=== PATIENT | male | born 1970 | race Caucasian/White ===

== ENCOUNTER 2023-09-07 19:30 | Emergency (ER) | payer OTHER, SELFPAY ==
[2023-09-07 19:35] VITALS: BP 162/103
[2023-09-07 19:51] LABS: % Basophils 0.6 % (0-2); % Eosinophils 1.2 % (0-6); % Immature Granulocytes 0.1 % (0-0.5); % Lymphocytes 36.7 % (20.5-51.1); % Monocytes 6.7 % (1.7-9.3); % Neutrophils 54.7 % (42.2-75.2); Absolute Basophils 0.1 10^3/uL (0-0.2); Absolute Eosinophils 0.1 10^3/uL (0-0.7); Absolute Lymphocytes 3.1 10^3/uL (1.2-3.4); Absolute Monocytes 0.6 10^3/uL (0.1-0.6); Absolute Neutrophils 4.6 10^3/uL (1.4-6.5); Hematocrit 41.8 % (39.0-52.0); Hemoglobin 14.8 g/dL (13.0-18.0); Mean Corp Hgb Conc. 35.4 g/dL (33.0-37.0); Mean Corpuscular Hgb 29.1 pg (27.0-31.0); Mean Corpuscular Volume 82.3 fL (80.0-94.0); Mean Platelet Volume 10.9 fL (7.4-10.4); Nucleated Red Blood Cells % 0 % (-); Platelet Count 233 10^3/uL (130-400); Red Blood Cell Count 5.08 10^6/uL (4.70-6.10); Red Cell Dist. Width 12.7 % (11.5-14.5); White Blood Cell Count 8.5 10^3/uL (4.8-10.8)
[2023-09-07 20:17] LABS: ALT (SGPT) 68 U/L (0-50); AST (SGOT) 40 U/L (17-59); Albumin 4.8 g/dl (3.5-5.0); Alkaline Phosphatase 56 U/L (38-126); Blood Urea Nitrogen 23 mg/dl (9-20); Calcium 9.9 mg/dl (8.4-10.2); Carbon Dioxide 26 mmol/L (22-30); Chloride 104 mmol/L (98-107); Glucose 101 mg/dl (70-99); Potassium 4.5 mmol/L (3.5-5.1); Sodium 138 mmol/L (135-145); Total Bilirubin 0.5 mg/dl (0.2-1.3); Total Protein 7.7 g/dl (6.3-8.2); eGFR > 60.00
[2023-09-07 20:20] LABS: Troponin I < 0.012 ng/ml
[2023-09-07 21:00] VITALS: BP 142/96
--- NOTE | 2023-09-07 21:55 | ED.GENMED ---
History of Present Illness
General
Chief Complaint: Chest Pain
Source: patient
Exam Limitations: none
Time Seen by Provider: 09/07/23 20:44
History of Present Illness
History of Present Illness:
This is a 53 year old male that comes in with multiple complaints. States that on he went to his PCP as over the past year he has had this inflammatory issue. States that he told him there is something wrong with his right lung. States that
he was given Steroids and antibiotic that if he didn't feel any better he could start them. States that he started the Steroids on Wednesday and the inflammation got better. States that today he did not feel well and was SOB slightly. States that the
SOB has been going on in the past month. States that he also has right sided abd pain that has been the liver for the past 6 months and it a throbbing pain. State that he has been flushed and sweating more. Denies any fever, chest pain, nausea,
vomiting, diarrhea, headache, dizziness, urinary burning.
Past History
Past History
ED Past Medical History: Asthma, GERD and Other (Palpitations, Fatty liver, Hep A)
ED Past Surgical History: Orthopedic (Left knee surgery, ) and Urological (Vasectomy)
Social History
Tobacco: Non-smoker
Alcohol: None
Personal:
Living: with family
Employment: Employed
Review of Systems
Review of Systems
All Other Systems: ROS reviewed and negative except as documented in HPI and ROS
Constitutional: Reports night sweats; Denies fever or chills
EENT: Reports no symptoms
Respiratory: Reports trouble breathing and other (Right lower lung discomfort); Denies cough
Cardiac: Denies chest pain
ABD/GI: Reports abdominal pain (Right sided abd pain); Denies nausea, vomiting or diarrhea
: Reports no symptoms; Denies dysuria, frequency or urgency
Musculoskeletal: Reports no symptoms
Skin: Reports no symptoms
Neurological: Reports no symptoms; Denies dizzy or headache
Psychiatric: Reports no symptoms
Phy Exam
General Physical Exam
General Presentation: well appearing and no apparent distress
General age: appears stated age
General Skin: warm and dry
General Habitus: normal
General Mental: alert
General Hydration: appears well hydrated
ENT Exam
ENT Exam: TM's normal, pharynx normal and neck supple
Eye Exam
Eye Exam: EOMI
Cardiovascular Exam
Cardiovascular Exam: regular rate/rhythm, no edema, no murmur and normal peripheral pulses
Pulmonary Exam
Pulmonary Exam: lungs clear, no respiratory distress, no rales, chest non tender, no crackles, no rhonchi, no wheezing and no cough
Gastrointestinal Exam
Gastrointestinal Exam: normal bowel sounds, non tender, soft, no organomegaly, no pulsatile mass and non distended
Musculoskeletal Exam
Musculoskeletal Exam: full ROM and no edema
Skin Exam
Skin Exam: normal color, warm/dry, no rash and no petechia
Psychiatric Exam
Psychiatric Exam: normal mood/affect
Scores
Heart Score for Chest Pain Patients
STEMI patient?: No
History: Slightly or Non-Suspicious
ECG: Normal
Age: >45 - <65 years
Risk Factors: No Risk Factors
Troponin: </= Normal Limit
Heart Score for Chest Pain Patients: 1
Heart Score Risk: 2.5% MACE over next 6 weeks
Course
Orders/Labs/Results
Orders:
Orders
09/07/23 19:34
Electrocardiogram (*1) Urgent
Reason for Study: Chest Pain
Cardiac Monitoring- Treatment ONCE
EKG- Treatment ONCE
IV Insert/Care/Rem.- Treatment PRN
O2 Therapy [RESP] Urgent
Titrate/Wean O2 to maintain O2 sat greater than (%): 90
Special Instructions: Maintain sats >/=90%
Pulse Ox/spot Check [RESP] Urgent
Quantity: 1
Special Instructions: ON ROOM AIR
09/07/23 19:42
CXR2 [CR Chest - 2 Views ] Urgent
Comment:
Reason For Exam: chest pain
09/07/23 19:43
Complete Blood Count/With Diff Urgent
Comprehensive Metabolic Panel Urgent
Troponin I Urgent
09/07/23 21:54
CT Abd/pelvis W Iv Cont Urgent
Comment:
Reason For Exam: rIGHT SIDED ABD PAIN
0.9% Sodium Chloride 1000 ml [Nss] 1,000 ml IV BOLUS
Abnormal Lab Results
09/07/23
19:43
MPV 10.9 H fL
(7.4-10.4)
BUN 23 H mg/dl
(9-20)
Glucose 101 H mg/dl
(70-99)
ALT 68 H U/L
(0-50)
09/07/23 19:43
09/07/23 19:43
Dehydration. Glucose nonfasting. ALT elevated. Troponin <0.012
Vital Signs
Initial and Last Documented VS:
Initial Vital Signs
Temp Pulse Resp BP Pulse Ox
98.5 F 76 18 162/103 99
09/07/23 19:35 09/07/23 19:35 09/07/23 19:35 09/07/23 19:35 09/07/23 19:35
Last Documented Vital Signs
Temp Pulse Resp BP Pulse Ox
98.5 F 66 17 142/96 97
09/07/23 19:35 09/07/23 21:30 09/07/23 20:45 09/07/23 21:00 09/07/23 22:52
MDM/Problems Addressed
Differential Diagnosis Includes:
Right sided chest pain,
MDM/Problems Addressed:
This is a 53 year old male that comes in with multiple complaints. States that he has had right sided abd throbbing pain and that he feels like there is something in the right lung.
Will get labs, CT abd and chest x-ray.
Back into see patient. Explained that his blood work shows dehydrated and his ALT is mildly elevated which goes along with a fatty liver. Troponin is normal and his ECG is unchanged from his prior ECG. CT of the abd shows a left inguinal hernia but
nothing else acute. Chest x-ray is negative for acute disease. Explained that his right side abd pain, may be coming form his back as the nerves wrap around to the abd. With being on the steroid this has decreased any inflammation and will has
decreased this right sided pain. Patient to follow up with the family doctor. Return with any concerns.
Chronic conditions affecting care:
NA
Acute Exacerbation and/or Progression of Chronic Illness:
NA
*Radiology
Radiology exam reviewed: preliminary read by ED provider (Chest- Negative for active disease. ) and radiology read reviewed (CT-The appendix is well-visualized and appears normal. No evidence for bowel obstruction or free intraperitoneal air. Fatty
infiltration of the liver. Mild vascular calcification with no aortic aneurysm. Gauaf-kcl-ketrsengoa left inguinal hernia. . )
*Pulse Oximetry
Patient hypoxic: no
*EKG
Interpreted by ED Provider?: Yes
Heart Rate: 63
Rate: normal
Rhythm: sinus
[place]: left axis deviation
Interval: normal interval
QRS Pattern: normal QRS
Ischemia: no ischemia
*Critical Care Note
Total Time (30-74mins, 75-104mins- exclusive of procedures): Not Applicable
ED Attending Note
-
Portions of this chart may have been created with voice recognition software.� Occasional wrong word or��sound alike� substitutions may have occurred due to the inherent limitations of voice recognition software.
Discharge Plan
Departure
Patient Disposition: Home (Routine Discharge)
Date of Disposition: 09/07/23
Time of Disposition: 23:37
Patient with high blood pressure during this ER visit?: Yes
Condition: Good
Covid-19: Not Applicable
Discharge Problem:
Right sided abdominal pain
Instructions: Abdominal pain in adults - Discharge instructions, BLOOD PRESSURE
Referrals:
Leonardo Hollis, [Family Provider] - Call in 1-3 days for appt
Activity Restrictions/Additional Instructions:
As discussed, your blood work shows Dehydration. Your CT scan shows that you have a left inguinal hernia and there is degenerative changes in the spine. This is most likely causing your Right sided abd pain. Your chest x-ray is normal. Please follow
up with the family doctor for further evaluation. Please increase your water intake to 8-8oz glasses daily. IF YOU HAVE ANY OTHER CONCERNS PLEASE RETURN TO THE EMERGENCY ROOM.
Interventions
Interventions:
*Risk Screen - Suicide Last Done: 09/07/23 21:09
*General Assessment Last Done: 09/07/23 19:35
*Neglect/Abuse Screening Last Done: 09/07/23 19:35
ED- Fall Risk Assessment Last Done: 09/07/23 21:09
ED- Cardiac Assessment Last Done: 09/07/23 21:09
Discharge Date and Time
Print Language: FAROESE
[2023-09-07] MEDS: NSS 1000 IV (22:14)
== END 2023-09-07 23:59 | disposition home or self-care (01) ==
LOC: EMR 19:30
PROVIDERS: Emergency Medicine; EMERGENCY PHYSICIAN Emergency Medicine; FAMILY PHYSICIAN Family Medicine
DX: R07.89 Other chest pain (principal); J45.909 Unspecified asthma, uncomplicated; K21.9 Gastro-esophageal reflux disease without esophagitis; R00.2 Palpitations; K76.0 Fatty (change of) liver, not elsewhere classified
CPT/HCPCS: 99284; 96360; 71046; 74177; 80053; 84484; 85025; 93005; Q9967

== ENCOUNTER 2024-02-27 08:45 | Emergency (ER) | payer OTHER, SELFPAY ==
[2024-02-27 08:48] VITALS: BP 160/108
--- NOTE | 2024-02-27 09:45 | ED.GENMED ---
History of Present Illness
General
Chief Complaint: Abdominal Symptoms
Source: patient
Time Seen by Provider: 02/27/24 09:04
History of Present Illness
History of Present Illness:
53-year-old male with past medical history of GERD and SANCHEZ presenting to the emergency department for evaluation of right upper quadrant pain that has been ongoing for the better part of a few months, no specific etiology found however has been
having waxing and waning elevated liver function levels, follows with a global ceo and had been doing quite well up until the last few months when his ALT started to increase again without any specific etiologies. Patient notes that symptoms seem
to start when he was exercising he would notice his entire body would get very flushed and during workup was noted to have elevated liver function test so his symptoms were thought to be related to this. Over the coming months patient had been
worked up without any specific etiology found other than a somewhat fatty liver. He notes around [place] time he woke up to a diffuse body rash and was started on prednisone which he took but was experiencing some side effects of discontinued
this medication. Patient states last night he started to get more pain within the right upper quadrant and felt a hot/flushed sensation that was worse than typical which is what prompted him to come to the ER today. No other GI related symptoms
presently. Social history noncontributory.
Past History
Past History
ED Past Medical History: Asthma, GERD and Other (Palpitations, Fatty liver, Hep A)
ED Past Surgical History: Orthopedic (Left knee surgery, ) and Urological (Vasectomy)
Social History
Tobacco: Non-smoker
Alcohol: None
Drug: None
Personal:
Living: with family
Employment: Employed
Review of Systems
Review of Systems
All Other Systems: ROS reviewed and negative except as documented in HPI and ROS
Phy Exam
Physical Exam
Physical Exam:
GENERAL: Alert , in no apparent distress
EYE: clear conjunctiva b/l
HEAD: NCAT
ENT: o/p clr, mmm.
CARDIAC: Regular rate and rhythm
LUNGS: Clear breath sounds bilaterally, no acute respiratory distress, no wheezes/rales/rhonchi
ABDOMEN: Soft, without focal tenderness, no r/g, no cvat
NEUROLOGICAL: Alert and oriented
SKIN: Warm and dry, skin intact.
MUSCULOSKELETAL: No edema, well perfused.
PSYCH: Normal and appropriate interaction.
Scores
Heart Failure Risk
Heart Failure Risk Score: Not Applicable
Heart Score for Chest Pain Patients
STEMI patient?: Not applicable
Withdrawal Assessment of Alcohol
Withdrawal Assessment Completed?: Not applicable
Course
Orders/Labs/Results
Orders:
Orders
02/27/24 09:22
US Abdomen Complete/Upper Urgent
Comment:
Reason For Exam: upper abd pain
02/27/24 09:38
Complete Blood Count/With Diff Urgent
Comprehensive Metabolic Panel Urgent
Lipase Urgent
Urinalysis Reflex To Culture Urgent
Date Specimen was Collected: 02/27/24
Time Specimen was Collected: 09:35
Urine Microscopic Reflex Cult Urgent
02/27/24 11:07
Electrocardiogram (*1) Urgent
Reason for Study: Abdominal Pain
EKG- Treatment ONCE
Abnormal Lab Results
02/27/24
09:38
MPV 11.6 H fL
(7.4-10.4)
Glucose 103 H mg/dl
(70-99)
ALT 77 H U/L
(0-50)
Lipase 301 H U/L
(23-300)
Urine Ketones Trace A
(Negative)
Leukocyte Esterase Rfl Trace A
(Negative)
Urine Bacteria (Reflex) Few A
(Negative)
02/27/24 09:38
02/27/24 09:38
Vital Signs
Initial and Last Documented VS:
Initial Vital Signs
Temp Pulse Resp BP Pulse Ox
98.3 F 84 18 160/108 100
02/27/24 08:48 02/27/24 08:48 02/27/24 08:48 02/27/24 08:48 02/27/24 08:48
Last Documented Vital Signs
Temp Pulse Resp BP Pulse Ox
98.3 F 84 18 143/89 96
02/27/24 08:48 02/27/24 08:48 02/27/24 08:48 02/27/24 12:00 02/27/24 12:30
MDM/Problems Addressed
Differential Diagnosis Includes:
cholelithiasis/cholecytisis considered however patient did have a CAT scan done here in August which did not show any abnormalities of the gallbladder making this diagnosis a little bit less likely, GERD/gastritis, pancreatitis, PE considered given
location of symptoms however patient without any other symptoms such as coughing, shortness of breath or chest pain making this a likely diagnosis
MDM/Problems Addressed:
53-year-old male presenting to the emergency department for evaluation of what sounds to be acute on chronic right upper quadrant abdominal discomfort. This is seemingly an ongoing issue and has been working with global ceo for evaluation of
mildly elevated liver function tests. Recently was on steroids but has been off for at least 2 full weeks. No fevers or infectious symptoms. Abdominal exam reassuring. Will repeat labs and ultrasound as patient states his primary care was going
to order him an ultrasound of the liver/gallbladder. Reassessment following with anticipation of need for continued outpatient workup.
*Radiology
Radiology exam reviewed: radiology read reviewed
*Pulse Oximetry
Patient hypoxic: no
*Critical Care Note
Total Time (30-74mins, 75-104mins- exclusive of procedures): Not Applicable
Data Reviewed
Review of Other/Old Records Reveals: Labs and Records
Patient Management
Escalation/DeEscalation of care consider admission/obs:
Ultrasound shows fatty liver. No gallstones or bile duct dilatation. Incidental finding on CT noted, patient provided with printout copy of the report and can follow-up on a nonemergent basis for CT scan. I did advise patient to follow-up with
primary care provider would likely need repeat labs within a few weeks to trend ALT and lipase. He is aware of return precautions to the ER. Stable for discharge home.
ED Attending Note
-
Portions of this chart may have been created with voice recognition software.� Occasional wrong word or��sound alike� substitutions may have occurred due to the inherent limitations of voice recognition software.
Discharge Plan
Departure
Patient Disposition: Home (Routine Discharge)
Date of Disposition: 02/27/24
Time of Disposition: 12:45
Patient with high blood pressure during this ER visit?: Yes
Discharge Problem:
Abdominal pain
Instructions: Abdominal Pain
Referrals:
Leonardo Hollis DO [Family Provider] -
Interventions
Interventions:
*Risk Screen - Suicide Last Done: 02/27/24 08:48
*General Assessment Last Done: 02/27/24 08:48
*Neglect/Abuse Screening Last Done: 02/27/24 08:48
ED- Fall Risk Assessment Last Done: 02/27/24 11:45
*ED COVID-19 Vaccine History Last Done: 02/27/24 11:45
KO-Ywfntj-Sfltcngcra Assessment Last Done: 02/27/24 10:55
Discharge Date and Time
Print Language: GEORGIAN
[2024-02-27 09:52] LABS: % Basophils 0.5 % (0-2); % Eosinophils 2.5 % (0-6); % Immature Granulocytes 0.4 % (0-0.5); % Lymphocytes 43.2 % (20.5-51.1); % Monocytes 6.6 % (1.7-9.3); % Neutrophils 46.8 % (42.2-75.2); Absolute Eosinophils 0.1 10^3/uL (0-0.7); Absolute Lymphocytes 2.4 10^3/uL (1.2-3.4); Absolute Monocytes 0.4 10^3/uL (0.1-0.6); Absolute Neutrophils 2.6 10^3/uL (1.4-6.5); Hematocrit 45.4 % (39.0-52.0); Hemoglobin 15.7 g/dL (13.0-18.0); Mean Corp Hgb Conc. 34.6 g/dL (33.0-37.0); Mean Corpuscular Volume 83.8 fL (80.0-94.0); Mean Platelet Volume 11.6 fL (7.4-10.4); Nucleated Red Blood Cells % 0 % (-); Platelet Count 223 10^3/uL (130-400); Red Blood Cell Count 5.42 10^6/uL (4.70-6.10); Red Cell Dist. Width 12.9 % (11.5-14.5); White Blood Cell Count 5.6 10^3/uL (4.8-10.8)
[2024-02-27 10:00] LABS: Urine Albumin Trace (Neg - Trace); Urine Bilirubin Negative (Negative); Urine Character Clear (Clear); Urine Color Yellow; Urine Glucose Negative (Negative); Urine Ketone Trace (Negative); Urine Leukocyte Trace (Negative); Urine Nitrite Negative (Negative); Urine Occult Blood Negative (Negative); Urine Specific Gravity 1.025 (<1.030); Urine Urobilinogen Negative (Neg - 1+)
[2024-02-27 10:07] LABS: ALT (SGPT) 77 U/L (0-50); AST (SGOT) 41 U/L (17-59); Alkaline Phosphatase 57 U/L (38-126); Blood Urea Nitrogen 12 mg/dl (9-20); Calcium 10.2 mg/dl (8.4-10.2); Carbon Dioxide 27 mmol/L (22-30); Chloride 103 mmol/L (98-107); Glucose 103 mg/dl (70-99); Lipase 301 U/L (23-300); Potassium 4.7 mmol/L (3.5-5.1); Sodium 140 mmol/L (135-145); Total Bilirubin 0.6 mg/dl (0.2-1.3); eGFR > 60.00
[2024-02-27 10:20] LABS: Urine Mucus Many; Urine Red Blood Cell 0-2 /HPF (0-2)
[2024-02-27 10:21] LABS: Urine Amorphous Seen; Urine Bacteria Few (Negative); Urine Granular Cast 0-2 /LPF (0)
[2024-02-27 10:47] VITALS: BP 123/108
[2024-02-27 10:49] VITALS: BP 138/92
[2024-02-27 11:00] VITALS: BP 140/91
[2024-02-27 11:45] VITALS: BMI 33.4
[2024-02-27 12:00] VITALS: BP 143/89
[2024-02-27 12:50] VITALS: BP 141/82
== END 2024-02-27 12:59 | disposition home or self-care (01) ==
LOC: EMR 08:45
PROVIDERS: Physician Assistant Medical; EMERGENCY PHYSICIAN Student in an Organized Health Care Education/Training Program; FAMILY PHYSICIAN Family Medicine
DX: R10.11 Right upper quadrant pain (principal); R03.0 Elevated blood-pressure reading, without diagnosis of hypertension; K21.9 Gastro-esophageal reflux disease without esophagitis; K76.0 Fatty (change of) liver, not elsewhere classified
CPT/HCPCS: 99285; 76700; 80053; 81003; 81015; 83690; 85025; 93005

== ENCOUNTER → 2024-03-16 14:52 | Outpatient (REF) | payer OTHER, SELFPAY | LOC: RCS 14:52 | PROVIDERS: FAMILY PHYSICIAN Family Medicine | DX: E78.5 Hyperlipidemia, unspecified (principal); I11.9 Hypertensive heart disease without heart failure | CPT/HCPCS: 93017 ==

== ENCOUNTER → 2024-05-09 07:06 | Outpatient (REF) | payer OTHER, SELFPAY | LOC: RCS 07:06 | PROVIDERS: ATTENDING PHYSICIAN Nuclear Medicine Nuclear Cardiology; FAMILY PHYSICIAN Family Medicine | DX: R07.89 Other chest pain (principal); R94.39 Abnormal result of other cardiovascular function study; E78.5 Hyperlipidemia, unspecified | CPT/HCPCS: 93306 ==

== ENCOUNTER → 2024-05-12 08:57 | Outpatient (REF) | payer OTHER, SELFPAY ==
--- NOTE | 2024-05-12 10:07 | CARDSERVDEF ---
Echocardiogram with Definity completed after protocol screening completed. Allergies verified.
Patent IV site: Right antecubital 22 G PC by Lorne Loza RN
IV site flushed with 0.9% NaCl pre and post administration.
Diluted bolus method utilized to enhance visualization of ventricular salazar.
Total volume given: __4__ mL
Patient tolerated all procedures well without complications.
Heplock D/c ed at 1006, site clear, no redness, no edema. Pressure held, no bleeding,2x2 applied and taped. Pt offers no complaints.
== END ==
LOC: RCS 08:57
PROVIDERS: ATTENDING PHYSICIAN Nuclear Medicine Nuclear Cardiology; FAMILY PHYSICIAN Family Medicine
DX: R07.89 Other chest pain (principal); R94.39 Abnormal result of other cardiovascular function study; E78.5 Hyperlipidemia, unspecified
CPT/HCPCS: 93017; 93350; Q9957

== ENCOUNTER 2024-09-30 18:37 | Observation (INO) | payer OTHER, SELFPAY ==
[2024-09-30] VITALS (14 sets, daily range): BP systolic 139–176; BP diastolic 87–106; BMI 34.3; BMI 33.5
[2024-09-30 13:13] LABS: Hematocrit 43.8 % (39.0-52.0); Hemoglobin 15.2 g/dL (13.0-18.0); Mean Corp Hgb Conc. 34.7 g/dL (33.0-37.0); Mean Corpuscular Volume 83.4 fL (80.0-94.0); Nucleated Red Blood Cells % 0 % (-); Platelet Count 239 10^3/uL (130-400); Red Cell Dist. Width 12.6 % (11.5-14.5)
[2024-09-30 13:15] LABS: INR 1.10; PT 14.5 Sec (11.4-14.6)
[2024-09-30 13:16] LABS: APTT 25.6 Sec (23.4-35.0)
[2024-09-30 13:29] LABS: ALT (SGPT) 52 U/L (0-50); AST (SGOT) 29 U/L (17-59); Albumin 5.1 g/dl (3.5-5.0); Alkaline Phosphatase 55 U/L (38-126); Blood Urea Nitrogen 14 mg/dl (9-20); Calcium 10.6 mg/dl (8.4-10.2); Carbon Dioxide 24 mmol/L (22-30); Chloride 108 mmol/L (98-107); Glucose 114 mg/dl (70-99); Potassium 4.5 mmol/L (3.5-5.1); Sodium 142 mmol/L (135-145); Total Protein 8.7 g/dl (6.3-8.2); eGFR > 60.00
[2024-09-30 13:41] LABS: Troponin I < 0.012 ng/ml
--- NOTE | 2024-09-30 16:09 | ED.GENMED ---
History of Present Illness
General
Chief Complaint: Cardiac Symptoms
Source: patient and family
Time Seen by Provider: 09/30/24 16:09
Nursing documentation reviewed up to this point in time: agreed with
History of Present Illness
History of Present Illness:
54-year-old male with past medical history of high blood pressure, eosinophilic esophagitis, GERD, asthma comes to the ED due to worsening heart palpitations that got worse with exertion this morning. He says that he has had some fatigue and
shortness of breath but does not report any chest pain. He said he has had these palpitations in the past and they always come with exertion. Today the palpitations went from his left side of the chest to his upper left jaw and down his left arm.
He has been seen by cardiology, follows Dr. Awad, and had a cardiac stress test and stress echo done which showed signs of ischemia. As per the patient they decided not to act on the findings for now. Patient has been going to urgent care today
who did an EKG and chest x-ray. He said the EKG findings were abnormal and they noticed some ST segment depressions and told the patient to go to the ED to get his troponin and D-dimer checked. They were thinking possible PE. He has been having
these cough and shortness of breath for around a year now and his PCP thought it might be Lyme related so he was started on doxycycline and steroid treatment yesterday. He also had an endoscopy done this past Wednesday which showed that he has
eosinophilic esophagitis. Currently does not report any fever, chills, headaches nausea or vomiting but does have cough, shortness of breath, chest palpitations/pressure but no chest pain.
Past History
Past History
ED Past Medical History: Asthma, GERD, Other (Palpitations, Fatty liver, Hep A) and Other (Eosinophilic esophagitis)
ED Past Surgical History: Orthopedic (Left knee surgery, ) and Urological (Vasectomy)
Social History
Tobacco: Non-smoker
Alcohol: None
Drug: None
Personal:
Living: with family
Employment: Employed
Review of Systems
Review of Systems
Allergies reviewed?: Yes
All Other Systems: ROS reviewed and negative except as documented in HPI and ROS
Constitutional: Denies fever, fatigue or chills
EENT: Reports no symptoms
Respiratory: Reports cough
Cardiac: Reports diaphoresis and palpitations; Denies chest pain or syncope
ABD/GI: Reports no symptoms
: Reports no symptoms
Musculoskeletal: Reports no symptoms
Skin: Reports no symptoms
Neurological: Reports no symptoms
Endocrine: Reports no symptoms
Hematologic/Lymphatic: Reports no symptoms
Psychiatric: Reports no symptoms
Phy Exam
General Physical Exam
General Presentation: well appearing and no apparent distress
General Skin: warm and dry
General Habitus: normal
General Mental: alert
General Hydration: appears well hydrated
Cardiovascular Exam
Cardiovascular Exam: regular rate/rhythm, no edema and no murmur
Heart Sounds: normal
Pulmonary Exam
Pulmonary Exam: lungs clear, no respiratory distress, no crackles and no wheezing
Gastrointestinal Exam
Gastrointestinal Exam: normal bowel sounds, non tender, soft and non distended
Musculoskeletal Exam
Musculoskeletal Exam: full ROM and no edema
Skin Exam
Skin Exam: normal color and warm/dry
Psychiatric Exam
Psychiatric Exam: normal mood/affect
Course
Orders/Labs/Results
Orders:
Orders
09/30/24 12:46
ECG [Electrocardiogram (*1)] Urgent
Reason for Study: Palpitations
EKG- Treatment ONCE
09/30/24 12:58
Complete Blood Count/With Diff Urgent
Comprehensive Metabolic Panel Urgent
PT/INR [Prothrombin Time] Urgent
PTT Urgent
TSH Reflex To Free T4 Urgent
Troponin I Urgent
09/30/24 16:29
NT-proBNP Urgent
Troponin I Urgent
Abnormal Lab Results
09/30/24
12:58
MPV 11.5 H fL
(7.4-10.4)
Absolute Neuts (auto) 7.3 H 10^3/uL
(1.4-6.5)
Neutrophils % 78.6 H %
(42.2-75.2)
Lymphocytes % 16.1 L %
(20.5-51.1)
Chloride 108 H mmol/L
(98-107)
Glucose 114 H mg/dl
(70-99)
Calcium 10.6 H mg/dl
(8.4-10.2)
ALT 52 H U/L
(0-50)
Total Protein 8.7 H g/dl
(6.3-8.2)
Albumin 5.1 H g/dl
(3.5-5.0)
09/30/24 12:58
09/30/24 12:58
Vital Signs
Initial and Last Documented VS:
Initial Vital Signs
Temp Pulse Resp BP Pulse Ox
98.9 F 90 16 161/106 98
09/30/24 12:41 09/30/24 12:41 09/30/24 12:41 09/30/24 12:41 09/30/24 12:41
Last Documented Vital Signs
Temp Pulse Resp BP Pulse Ox
98.3 F 78 17 168/106 100
09/30/24 15:35 09/30/24 16:30 09/30/24 16:30 09/30/24 16:30 09/30/24 16:30
MDM/Problems Addressed
Differential Diagnosis Includes:
ACS, acute MD, pleuritic pain, autoimmune pericarditis, asthma exacerbation
MDM/Problems Addressed:
54-year-old male with past medical history of high blood pressure, eosinophilic esophagitis, GERD, asthma comes to the ED due to worsening heart palpitations that got worse with exertion this morning.
EKG findings show ST depressions in leads V3 to V5, much changed from previous EKGs
Troponins were normal
proBNP checked for any CHF, which was normal (96.7)
No abnormality seen on CBC, CMP, TSH
Patient asks about D-dimer testing but not indicated at this time due to no symptoms of pulmonary embolism including no fever, tachycardia, worsening cough
Spoke with cardiology, given 2 options including patient can stay until Wednesday to get cardiac cath done as his symptoms and EKG changes are suspicious for possible MD or he can go home and follow-up in outpatient setting
Discussed with patient that he would prefer to stay in the hospital and get the procedure done on Wednesday
Will admit patient to the hospital and cardiology will see him tomorrow
Chronic conditions affecting care: HTN and Asthma
*Pulse Oximetry
SaO2: 97
Oxygen Mode of Delivery: Room air
Patient hypoxic: no
*Critical Care Note
Total Time (30-74mins, 75-104mins- exclusive of procedures): Not Applicable
ED Attending Note
-
Portions of this chart may have been created with voice recognition software.� Occasional wrong word or��sound alike� substitutions may have occurred due to the inherent limitations of voice recognition software.
Discharge Plan
Departure
Patient Disposition: Admit
Date of Disposition: 09/30/24
Time of Disposition: 17:45
Admit to: Telemetry
Presentation/result/management discussed w/ accepting MD/DO: Hospitalist
Patient with high blood pressure during this ER visit?: Yes
Condition: Serious
Covid-19: Not Applicable
Discharge Problem:
Heart palpitations
Prescriptions:
No Action
amlodipine 2.5 mg Tablet
2.5 mg PO DAILY
prednisone 10 mg Tablets,Dose Pack
10 mg PO DIRECTED
pantoprazole 40 mg Tablet,Delayed Release (Dr/Ec)
40 mg PO BID
doxycycline hyclate [Doxy] 100 mg Tablet
100 mg PO DAILY
rosuvastatin 5 mg Tablet
5 mg PO DAILY
levocetirizine [Xyzal] 5 mg Tablet
5 mg PO DAILY
fluticasone propion-salmeterol [Advair Diskus] 250-50 mcg/dose Blister With Device
1 inh INHALATION DAILY
Referrals:
Leonardo Hollis DO [Family Provider, Family Practice]
Interventions
Interventions:
*Risk Screen - Suicide Last Done: 09/30/24 15:36
*General Assessment Last Done: 09/30/24 15:36
*Neglect/Abuse Screening Last Done: 09/30/24 15:36
*ED- Fall Risk Assessment Last Done: 09/30/24 15:36
ED- Pulmonary Assessment Last Done: 09/30/24 15:36
ED- Cardiac Assessment Last Done: 09/30/24 15:36
Discharge Date and Time
Print Language: PERSIAN
[2024-09-30 17:07] LABS: Troponin I < 0.012 ng/ml
--- NOTE | 2024-09-30 18:14 | ED.GENMED ---
History of Present Illness
General
Chief Complaint: Cardiac Symptoms
Source: patient
Exam Limitations: none
Time Seen by Provider: 09/30/24 16:09
Nursing documentation reviewed up to this point in time: agreed with
History of Present Illness
History of Present Illness:
Patient presents with exertional palpitations and radiation of the palpitations up his neck and down his left arm
Past History
Past History
ED Past Medical History: Asthma, GERD, Other (Palpitations, Fatty liver, Hep A) and Other (Eosinophilic esophagitis)
ED Past Surgical History: Orthopedic (Left knee surgery, ) and Urological (Vasectomy)
Social History
Tobacco: Non-smoker
Alcohol: None
Drug: None
Personal:
Living: with family
Employment: Employed
Family History
Family History: Other
Review of Systems
Review of Systems
Allergies reviewed?: Yes
All Other Systems: ROS reviewed and negative except as documented in HPI and ROS
Phy Exam
Physical Exam
Physical Exam:
Physical Exam
General: no apparent distress, not acutely ill
Neck: supple. no meningeal signs. normal psoterior pharynx
Heart: s1/s2 regular rate and rhythm, no murmur. equal radial pulses.
Lungs: no acute respiratory distress. clear bilaterally
Abdomen: normal bowel sounds. not tender. no CVAT
Neuro: alert and oriented. no focal neurological deficits
Skin: no rash
Psychiatric: well kept. interactive and cooperative
Extremities: no edema. no calf tenderness. negative homans. good distal pulses
Course
Orders/Labs/Results
Orders:
Orders
09/30/24 12:46
ECG [Electrocardiogram (*1)] Urgent
Reason for Study: Palpitations
EKG- Treatment ONCE
09/30/24 12:58
Complete Blood Count/With Diff Urgent
Comprehensive Metabolic Panel Urgent
PT/INR [Prothrombin Time] Urgent
PTT Urgent
TSH Reflex To Free T4 Urgent
Troponin I Urgent
09/30/24 16:29
NT-proBNP Urgent
Troponin I Urgent
Abnormal Lab Results
09/30/24
12:58
MPV 11.5 H fL
(7.4-10.4)
Absolute Neuts (auto) 7.3 H 10^3/uL
(1.4-6.5)
Neutrophils % 78.6 H %
(42.2-75.2)
Lymphocytes % 16.1 L %
(20.5-51.1)
Chloride 108 H mmol/L
(98-107)
Glucose 114 H mg/dl
(70-99)
Calcium 10.6 H mg/dl
(8.4-10.2)
ALT 52 H U/L
(0-50)
Total Protein 8.7 H g/dl
(6.3-8.2)
Albumin 5.1 H g/dl
(3.5-5.0)
09/30/24 12:58
09/30/24 12:58
Vital Signs
Initial and Last Documented VS:
Initial Vital Signs
Temp Pulse Resp BP Pulse Ox
98.9 F 90 16 161/106 98
09/30/24 12:41 09/30/24 12:41 09/30/24 12:41 09/30/24 12:41 09/30/24 12:41
Last Documented Vital Signs
Temp Pulse Resp BP Pulse Ox
98.3 F 75 16 166/95 100
09/30/24 15:35 09/30/24 18:00 09/30/24 18:00 09/30/24 18:00 09/30/24 18:14
*Pulse Oximetry
SaO2: 100
Oxygen Mode of Delivery: Room air
Patient hypoxic: no
*Critical Care Note
Total Time (30-74mins, 75-104mins- exclusive of procedures): Not Applicable
ED Attending Note
ED Attending Note
I performed a history and physical exam of patient and discussed management with resident, I reviewed resident's note and agree with documented findings and plan of care.: Yes
ED Attending Note:
Given patient has a recent stress test that show exercise-induced ischemia, and presents with exertional symptoms, decision made to admit patient for likely cardiac cath this Wednesday.
-
Portions of this chart may have been created with voice recognition software.� Occasional wrong word or��sound alike� substitutions may have occurred due to the inherent limitations of voice recognition software.
Discharge Plan
Departure
Patient Disposition: Admit
Date of Disposition: 09/30/24
Time of Disposition: 17:45
Admit to: Telemetry
Presentation/result/management discussed w/ accepting MD/DO: Hospitalist
Patient with high blood pressure during this ER visit?: Yes
Condition: Serious
Covid-19: Not Applicable
Discharge Problem:
Heart palpitations
Prescriptions:
No Action
amlodipine 2.5 mg Tablet
2.5 mg PO DAILY
prednisone 10 mg Tablets,Dose Pack
10 mg PO DIRECTED
pantoprazole 40 mg Tablet,Delayed Release (Dr/Ec)
40 mg PO BID
doxycycline hyclate [Doxy] 100 mg Tablet
100 mg PO DAILY
rosuvastatin 5 mg Tablet
5 mg PO DAILY
levocetirizine [Xyzal] 5 mg Tablet
5 mg PO DAILY
fluticasone propion-salmeterol [Advair Diskus] 250-50 mcg/dose Blister With Device
1 inh INHALATION DAILY
Referrals:
Lenoardo Hollis DO [Family Provider, Family Practice]
Interventions
Interventions:
*Risk Screen - Suicide Last Done: 09/30/24 15:36
*General Assessment Last Done: 09/30/24 15:36
*Neglect/Abuse Screening Last Done: 09/30/24 15:36
*ED- Fall Risk Assessment Last Done: 09/30/24 15:36
ED- Pulmonary Assessment Last Done: 09/30/24 15:36
ED- Cardiac Assessment Last Done: 09/30/24 15:36
Discharge Date and Time
Print Language: UPPER SORBIAN
--- NOTE | 2024-09-30 18:29 | HPS.HSE ---
Family Physician
-
Family Physician: Leonardo Hollis
Chief Complaint
-
palpitations
History of Present Illness
54-year-old male past medical history of hypertension, eosinophilic esophagitis, GERD, asthma presenting with worsening heart palpitations.
For the past year he has been having palpitations and went to urgent care a year ago and was noted to have abnormal EKG with ST depressions. He came to the hospital and was told his EKG looked the same as previously.
Over the past year he has been having palpitations that always come with exertion. He also notices abnormalities on his Apple Watch corresponding with the palpitations. He has been seeing Dr. Awad of cardiology had 2 stress tests which were
largely unremarkable. Cardiac catheterization was considered.
He has seen several doctors over the past several months for ongoing cough, congestion, fatigue and acid reflux.
He was tested for Lyme's disease twice and was negative previously. He saw GI doctor for GERD and recently had endoscopy and was diagnosed with eosinophilic esophagitis.
Yesterday he went to his primary care physician for fatigue, cough, shortness of breath and palpitations. Primary care physician empirically started him on doxycycline prednisone. Chest x-ray was negative. Patient felt better after starting these
medications but then developed significant palpitations prompting him to come to the urgent care who sent him to the hospital today.
He has also noticed twitching of his chest and jaw area that occurs at times.
His daughter and father likely have eosinophil esophagitis. His sister has Crohn's disease. No family history of heart disease.
He denies smoking or alcohol use.
Patient denies any tick bites or recent rashes but he has dogs that are exposed to ticks. He lives in [place].
Medical History
Past Medical History
Past Medical History: Reports Other (hypertension, eosinophilic esophagitis, GERD, asthma )
Past Surgical History: Reports None
Social History
Tobacco: Non-smoker
Alcohol: None
Drug: None
Family History
Family History: Not pertinent
Allergies / Home Medications
Allergies reflects when Allergies were last updated in [employer].
Home Medications with original date entered in [employer]
Allergy/Medication List:
Allergies
Allergy/AdvReac Type Severity Reaction Status Date / Time
levofloxacin (From Levaquin) Allergy Unknown Verified 09/30/24 15:27
Penicillins Allergy Unknown Verified 09/30/24 15:27
Home Medications
amlodipine 2.5 mg tablet 2.5 mg PO DAILY 09/30/24
doxycycline hyclate 100 mg tablet 100 mg PO DAILY 09/30/24
fluticasone 250 mcg-salmeterol 50 mcg/dose blistr powdr for inhalation (Advair Diskus) 1 inh inhalation DAILY 09/30/24
levocetirizine 5 mg tablet (Xyzal) 5 mg PO DAILY 09/30/24
pantoprazole 40 mg tablet,delayed release 40 mg PO BID 09/30/24
prednisone 10 mg tablets in a dose pack 10 mg PO DIRECTED 09/30/24
rosuvastatin 5 mg tablet 5 mg PO DAILY 09/30/24
Review of Systems
-
Constitutional: Reports No Symptoms
EENT: Reports No Symptoms
Respiratory: Reports See HPI
Cardiac: Reports See HPI
Abdomen/GI: Reports No Symptoms
: Reports No Symptoms
Musculoskeletal: Reports No Symptoms
Skin: Reports No Symptoms
Neurological: Reports No Symptoms
Endocrine: Reports No Symptoms
Hematologic/Lymphatic: Reports No Symptoms
Psych: Reports No Symptoms
Physical Exam
Vital Signs
Vital Signs
Temp Pulse Resp BP Pulse Ox
98.3 F 75 16 166/95 100
09/30/24 15:35 09/30/24 18:00 09/30/24 18:00 09/30/24 18:00 09/30/24 18:14
Physical Exam
General: Well Developed, Well Nourished and No Apparent Distress
HEENT: NormoCephalic, Moist mucous membranes and Atraumatic
Respiratory: Clear
Cardiac: S1/S2 and Regular Rhythm; No Murmur or Rub
GI: Soft, Non Tender, Non Distended and Normal Bowel Sounds; No Organomegaly
Rectal: Deferred by Provider
Musculoskeletal: No Clubbing, No Cyanosis and No Edema
Skin: No Rash
Neuro: Nonfocal/grossly intact
Laboratory Results
-
09/30/24 12:58
09/30/24 12:58
Laboratory Results
PT 14.5 Sec (11.4-14.6) 09/30/24 12:58
INR 1.10 09/30/24 12:58
APTT 25.6 Sec (23.4-35.0) 09/30/24 12:58
Total Bilirubin 0.6 mg/dl (0.2-1.3) 09/30/24 12:58
AST 29 U/L (17-59) 09/30/24 12:58
ALT 52 U/L (0-50) H 09/30/24 12:58
Alkaline Phosphatase 55 U/L (38-126) 09/30/24 12:58
Troponin I < 0.012 ng/ml 09/30/24 16:29
Data Reviewed
-
Lab Data: Labs Reviewed by me
Old Records: Reviewed
Impression/Plan
-
IMPRESSION:
PLAN:
# Chronic palpitations unclear if underlying ACS versus Lyme carditis/arrhythmia versus underlying autoimmune phenomena
-Troponins negative x 2
-EKG shows LVH, normal/rhythm, ST depressions in leads V2 through V6 which are chronic and possibly genetic
- Likely cardiac catheterization on Wednesday
-Check chest x-ray, TSH, RUSH, D-Dimer
-Continue statin
- Cardiology consulted
Possible Lyme's disease
-Check Lyme progressive
- Continue doxycycline
- Hold prednisone
Recently diagnosed eosinophilic esophagitis
Essential hypertension
- Continue amlodipine
GERD
- Continue Protonix
Asthma
- Continue Advair
Full code
DVT prophylaxis�heparin
Regular diet
[2024-09-30 19:20] LABS: D-Dimer < 0.27 ug/mlFEU (0.00-0.50)
[2024-09-30] MEDS: HEPARIN 5000 UNITS SC (21:31)
[2024-09-30] MEDS: PROTONIX 40 MG PO (21:32)
--- NOTE | 2024-09-30 22:01 | PTCARENOTE ---
Patient received as admission from emergency department. Denies current pain or discomfort. Able to ambulate to bed under own power without assistance from staff. Intake vial signs and assessment performed per protocol.
[2024-10-01 03:23] VITALS: BP 127/86
[2024-10-01 07:15] VITALS: BP 140/90
[2024-10-01] MEDS: ADVAIR HFA 115/21 MCG INHALER 2 PUFF INH ×2 (07:23→21:01)
--- NOTE | 2024-10-01 07:35 | W.PN.UPDATE ---
Update Note
Progress Note Update
I saw and evaluated the patient. I reviewed the resident�s note and agree with findings and plan as documented in the resident�s note.
Patient reports substernal and left-sided chest muscular 'twinge' overnight. Denies any chest pain. Regarding shortness of breath he says 'no more than usual.'
Gen: NAD, AAOx3.
Eyes: EOMI, PERRLA, no scleral icterus.
Neck: supple.
CV: RRR, +S1/S2, no m/r/g.
Resp: CTAB, no rales, wheezes, or rhonchi.
Abd: +BS, soft, NT, ND
Skin: No rashes.
Neuro: CN 2-12 intact, non-focal.
Psych: Normal mood and affect.
Acute on chronic palpitations:
-broad differential at this point
-Trops NEG x 2, D-dimer/TSH normal. RUSH pending.
-EKG on admission: NSR @ 83, nl axis/intervals, ST-dep V2-V6 (chronic and possibly genetic)
-cards c/s
-possible cardiac catheterization on Wednesday
-cont statin
Possible Lyme disease:
-Check Lyme IgG/IgM
-cont doxycycline for now
Other problems:
Obesity due to excess calories
Recently diagnosed eosinophilic esophagitis
Essential HTN: cont Norvasc
GERD: cont PPI
Asthma: cont Advair
FULL/heparin
--- NOTE | 2024-10-01 07:42 | W.PN.HOSP.TC ---
Today's Communication/Plan
-
See A/P
Assessment / Plan
Assessment / Plan
Assessment/plan
#Acute on chronic palpitations
-Etiology UNK, ACS vs Lyme carditis vs other phenomenon
-Trops negative x 2
-EKG- Normal sinus rhythm minimal voltage criteria for LVH
-Cardiology input appreciated
-Started on aspirin this admission, cardiac catheterization in the a.m.
-Other testing including RUSH, Lyme screen pending
-Continue statin
#Possible Lyme's disease
-Lyme testing pending
-Continue CERTIFIED COURT/MEDICAL INTERPRETER doxycycline for now
-CERTIFIED COURT/MEDICAL INTERPRETER prednisone taper till 10/04
#Recently diagnosed eosinophilic esophagitis
#Essential hypertension
-Continue amlodipine, dosage increased to twice daily this admission
#GERD
-Continue Protonix
#Asthma
-Continue Advair
#Obesity secondary to excess calories
-Affects all aspects of care, encouraged weight loss
CODE STATUS full code
DVT prophylaxis heparin subcu
Anticipated Discharge: > 48 hours
Subjective/Interval History
-
Patient seen and examined at bedside. Denies chest pain, denies palpitation. Reports his symptoms resolved at 4 PM yesterday.
Objective Data
-
Labs:
Laboratory Results
10/01/24
06:00
WBC Pending
Hgb Pending
Hct Pending
Plt Count Pending
Sodium Pending
Potassium Pending
Chloride Pending
Carbon Dioxide Pending
BUN Pending
Creatinine Pending
Glucose Pending
Calcium Pending
Total Bilirubin Pending
AST Pending
ALT Pending
Alkaline Phosphatase Pending
Vital Signs:
Vital Signs
Temp Pulse Resp BP Pulse Ox
98.2 F 86 18 127/86 96
10/01/24 03:23 10/01/24 07:27 10/01/24 07:27 10/01/24 03:23 10/01/24 07:27
I&O
09/30/24 10/01/24 10/02/24
06:59 06:59 06:59
Intake Total 960 / 960
Balance 960 / 960
Review of Systems
-
All other systems: Reviewed and negative (Except as documented)
Physical Exam
-
General: Well Developed and No Apparent Distress
HEENT: Normocephalic, Atraumatic and Moist Mucous Membranes
Respiratory: Clear to Auscultation
Cardiac: Regular Rhythm and S1/S2; Negative Murmur, Rub or Gallop
GI: Soft, Nontender, Nondistended and Normal Bowel Sounds; Negative Organomegaly
Rectal: Deferred by Provider
Musculoskeletal: No Clubbing, No Cyanosis and No Edema
Skin: Negative Rash
Neuro: Nonfocal/Grossly Intact
[2024-10-01 08:55] LABS: Hematocrit 43.1 % (39.0-52.0); Hemoglobin 14.7 g/dL (13.0-18.0); Mean Corp Hgb Conc. 34.1 g/dL (33.0-37.0); Mean Corpuscular Volume 84.2 fL (80.0-94.0); Nucleated Red Blood Cells % 0 % (-); Platelet Count 230 10^3/uL (130-400); Red Cell Dist. Width 12.7 % (11.5-14.5)
[2024-10-01 09:18] LABS: ALT (SGPT) 70 U/L (0-50); AST (SGOT) 44 U/L (17-59); Albumin 4.7 g/dl (3.5-5.0); Alkaline Phosphatase 57 U/L (38-126); Blood Urea Nitrogen 13 mg/dl (9-20); Calcium 9.6 mg/dl (8.4-10.2); Carbon Dioxide 27 mmol/L (22-30); Chloride 107 mmol/L (98-107); Estimated Creatinine Clearance 118 ml/min; Glucose 93 mg/dl (70-99); Potassium 4.4 mmol/L (3.5-5.1); Sodium 141 mmol/L (135-145); Total Protein 7.7 g/dl (6.3-8.2); eGFR > 60.00
[2024-10-01] MEDS: NORVASC 2.5 MG PO ×2 (09:21→20:24)
[2024-10-01] MEDS: CRESTOR 5 MG PO (09:21)
[2024-10-01] MEDS: PROTONIX 40 MG PO ×2 (09:21→20:24)
[2024-10-01] MEDS: HEPARIN 5000 UNITS SC ×2 (09:22→20:25)
[2024-10-01] MEDS: VIBRAMYCIN 100 MG PO (09:22)
[2024-10-01] MEDS: ZYRTEC 10 MG PO (09:22)
[2024-10-01] MEDS: DELTASONE 40 MG PO (09:24)
--- NOTE | 2024-10-01 11:28 | CON.CAR ---
Consultation
Consultation Request
Date/Time Consultation Requested: 09/30/24 9:00pm
Date/Time Consultation Performed: 10/01/24 11:00AM
Requesting Provider: Dr Ochoa
Performing Provider: DR Royal
Reason for Consultation: Chestv pain
Medical History
-
Chief Complaint: chest pains
History of Present Illness:
54-year-old man with past medical history of hyperlipidemia, eosinophilic esophagitis, Raynaud's, asthma, and anxiety presents with continued symptoms of chest pains, shortness of breath, and left arm pains. The patient has been having symptoms for
almost a year now. He gets intermittent episodes of a chest discomfort and ache in the center of his chest. Sometimes it occurs with exertion sometimes it occurs at rest. He does notice significant fatigue, dyspnea and intermittent sweats. The
sweats will occur sometimes with exercise other times without. He also notices discomfort on his left arm. He has had a extensive outpatient workup which has been unrevealing. Echocardiogram and stress echo in May 2024 had normal LVEF with
normal echo imaging but abnormal EKG findings at 11 METS. Coronary calcium score was abnormal at 26. He was placed on amlodipine and rosuvastatin at that time. His symptoms then continue to persist. He remains very anxious about his symptoms.
Over the past 2 days she has had more symptoms of chest/epigastric discomfort including left arm pains and sweats. He also was having palpitations yesterday with and felt poorly while moving his trash. He has stopped exercising. He presented to
the emergency room for further evaluation where troponins were negative EKG was abnormal. He is being treated for possible Lyme disease with doxycycline and steroids.
Past Medical History
Past Medical History: HTN and Hypercholesterolemia
Past Surgical History: None
Social History
Tobacco: Non-Smoker
Alcohol: None
Drug: None
Personal:
Living: With Family
Employment: Employed
Family History
Family History: Hypertension
Allergies / Home Medications
Allergy/AdvReac Type Severity Reaction Status Date / Time
levofloxacin (From Levaquin) Allergy Unknown Verified 09/30/24 15:27
Penicillins Allergy Unknown Verified 09/30/24 15:27
�Medication �Instructions �Recorded �Confirmed �Type
amlodipine 2.5 mg tablet 2.5 mg PO DAILY 09/30/24 09/30/24 History
doxycycline hyclate 100 mg tablet 100 mg PO DAILY 09/30/24 09/30/24 History
fluticasone 250 mcg-salmeterol 50 1 inh inhalation DAILY 09/30/24 09/30/24 History
mcg/dose blistr powdr for
inhalation (Advair Diskus)
levocetirizine 5 mg tablet (Xyzal) 5 mg PO DAILY 09/30/24 09/30/24 History
pantoprazole 40 mg tablet,delayed 40 mg PO BID 09/30/24 09/30/24 History
release
prednisone 10 mg tablets in a dose 10 mg PO DIRECTED 09/30/24 09/30/24 History
pack
rosuvastatin 5 mg tablet 5 mg PO DAILY 09/30/24 09/30/24 History
Review of Systems
-
History Source: Patient
Constitutional: Fatigue, Sleep Disturbance and Night Sweats
EENT: No Symptoms
Respiratory: Trouble Breathing
Cardiac: Chest Pain and Palpitations
Abdomen/GI: Abdominal Pain
: No Symptoms
Musculoskeletal: Muscle Stiffness
Skin: No Symptoms
Neurological: No Symptoms
Hematologic/Lymphatic: No Symptoms
Physical Exam
Vital Signs
Temp Pulse Resp BP Pulse Ox
98.3 F 86 18 140/90 96
10/01/24 07:15 10/01/24 07:27 10/01/24 07:27 10/01/24 07:15 10/01/24 07:27
Lab Results
10/01/24 08:05
10/01/24 08:05
Troponin I < 0.012 ng/ml 09/30/24 16:29
Tkz-D-Dcpkwurxryd Pept 96.7 pg/ml 09/30/24 16:29
Physical Exam
General: Well Developed, Well Nourished and No Apparent Distress
HEENT: Normocephalic and Anicteric
Respiratory: Clear and Non Labored Respirations
Cardiac: S1/S2 and Regular Rhythm
GI: Soft, Non Tender and Non Distended
Musculoskeletal: No Edema
Skin: Warm and Dry
Neuro: AO x 3
Psych: Calm
Impression / Plan
-
Assessment:
Chest pain/shortness of breath/sweats
Abnormal ECG
Hypertension
Possible Lyme disease?
Hyperlipidemia
Fatty liver/abnormal liver function testing
Stress Echo 05/12/24: Normal echo imaging at 11.5 METS with abnormal ECG
Echo May 2024, EF 61%, mild LVH, no significant valve disease
Plan:
He presents with a multitude of symptoms including chest pains, shortness of breath, sweats. These been going on for over 6 months at this time. TSH normal.
He has multiple risk factors for CAD including hypertension and hyperlipidemia and his stress testing has been indeterminant with an abnormal ECG but normal imaging.
After a lengthy discussion we agreed to proceed with cardiac cath in a.m. to evaluate him for possible coronary artery disease.
Will start aspirin and increase amlodipine to 2.5 mg twice daily.
Continue rosuvastatin. ALT is mildly abnormal.
Okay to continue doxycycline and prednisone for possible Lyme.
[2024-10-01 11:36] VITALS: BP 138/92
[2024-10-01] MEDS: ASPIR LOW (ENTERIC COATED) 81 MG PO (11:58)
[2024-10-01 12:14] LABS: HDL Cholesterol 32 mg/dl; LDL Cholesterol, Calculated 78 mg/dl; Very Low Density Lipoprotein 28 mg/dl (0-30)
--- NOTE | 2024-10-01 12:37 | CM ---
Patient seen at bedside
IA completed
OBS status - form explained & signed. In chart
Lives with 2 story home, 0 [place], ,flight to bed/bath
PLOF: independent, drives, works
DME: none
Denies VN/Rehab
PCP: Leonardo Hollis
Pharmacy: [facility], [address], [place]
PLAN: Home, no needs when stable
[2024-10-01 15:20] VITALS: BP 146/91
[2024-10-01 19:29] VITALS: BP 137/96
[2024-10-01] MEDS: NON-FORMULARY ITEM NASAL (22:14)
[2024-10-01 23:02] VITALS: BP 120/78
[2024-10-02] VITALS (13 sets, daily range): BP systolic 115–153; BP diastolic 70–97
[2024-10-02 07:11] LABS: Hematocrit 44.2 % (39.0-52.0); Hemoglobin 15.5 g/dL (13.0-18.0); Mean Corp Hgb Conc. 35.1 g/dL (33.0-37.0); Mean Corpuscular Volume 82.6 fL (80.0-94.0); Nucleated Red Blood Cells % 0 % (-); Platelet Count 257 10^3/uL (130-400); Red Cell Dist. Width 12.7 % (11.5-14.5)
[2024-10-02] MEDS: VIBRAMYCIN 100 MG PO (07:21)
[2024-10-02] MEDS: ASPIR LOW (ENTERIC COATED) 81 MG PO (07:21)
[2024-10-02] MEDS: HEPARIN 5000 UNITS SC ×2 (07:22→21:34)
[2024-10-02] MEDS: PROTONIX PO (07:22)
[2024-10-02] MEDS: CRESTOR 5 MG PO (07:22)
[2024-10-02] MEDS: ZYRTEC PO (07:23)
[2024-10-02] MEDS: DELTASONE 30 MG PO (07:26)
[2024-10-02] MEDS: NORVASC 2.5 MG PO ×2 (07:27→21:24)
[2024-10-02 07:35] LABS: Blood Urea Nitrogen 17 mg/dl (9-20); Calcium 10.2 mg/dl (8.4-10.2); Carbon Dioxide 25 mmol/L (22-30); Chloride 105 mmol/L (98-107); Estimated Creatinine Clearance 118 ml/min; Glucose 94 mg/dl (70-99); Magnesium 2.2 mg/dl (1.6-2.3); Potassium 4.0 mmol/L (3.5-5.1); Sodium 141 mmol/L (135-145); eGFR > 60.00
[2024-10-02] MEDS: ADVAIR HFA 115/21 MCG INHALER 2 PUFF INH ×2 (07:52→20:06)
--- NOTE | 2024-10-02 12:37 | W.PN.HOSP.TC ---
Today's Communication/Plan
-
Left heart cath today
Aspirin
Amlodipine increased
Prednisone taper
Follow-up Lyme/RUSH outpatient
Continue doxycycline as per PCP
Continue steroid taper
If continued palpitations after treatment of eosinophilic esophagitis, may consider EP study outpatient
Follow-up cardiology, PCP, GI/immunology outpatient
CXR today
Assessment / Plan
Assessment / Plan
Assessment/plan
#Acute on chronic palpitations
-Etiology UNK, ACS vs Lyme carditis vs related to eosinophilic esophagitis
-Trops negative x 2
-EKG- Normal sinus rhythm minimal voltage criteria for LVH
-Cardiology input appreciated
-Started on aspirin this admission, cardiac catheterization today
-Other testing including RUSH, Lyme screen pending, may need to be followed up outpatient. Already on doxycycline with outpatient PCP
-Continue statin
#Possible Lyme's disease
-Lyme testing pending
-Continue PRE BILLING SPECIALIST doxycycline for now
-PRE BILLING SPECIALIST prednisone taper till 10/04
#Recently diagnosed eosinophilic esophagitis
�Follow-up for possible Dupixent outpatient
#Essential hypertension
-Continue amlodipine, dosage increased to twice daily this admission
#GERD
-Continue Protonix
#Asthma
-Continue Advair
#Obesity secondary to excess calories
-Affects all aspects of care, encouraged weight loss
CODE STATUS full code
DVT prophylaxis heparin subcu
More than 30 minutes spent in discharge including
Final examination of the patient
Summarizing hospital stay
Instructions for continuing care to all relevant caregivers
Preparation of discharge records, prescriptions, and referral forms
Total time spent (in minutes): 37
Anticipated Discharge: Today
Subjective/Interval History
-
Date of Service: October 02, 2024
No acute events overnight, pending left heart cath
Objective Data
-
Labs:
Laboratory Results
10/02/24
06:58
WBC 9.0
Hgb 15.5
Hct 44.2
Plt Count 257
Sodium 141
Potassium 4.0
Chloride 105
Carbon Dioxide 25
BUN 17
Creatinine 1.0
Glucose 94
Calcium 10.2
Vital Signs:
Vital Signs
Temp Pulse Resp BP Pulse Ox
98.5 F 80 18 153/92 96
10/02/24 11:00 10/02/24 11:00 10/02/24 11:00 10/02/24 11:00 10/02/24 11:00
I&O
10/01/24 10/02/24 10/03/24
06:59 06:59 06:59
Intake Total 960 / 960 1999
Balance 960 / 960 1999
Review of Systems
-
History Source: Patient
All other systems: Not reviewed unless documented
Physical Exam
-
General: Well Developed and No Apparent Distress
HEENT: Normocephalic, Atraumatic and Moist Mucous Membranes
Respiratory: Clear to Auscultation
Cardiac: Regular Rhythm and S1/S2; Negative Murmur, Rub or Gallop
GI: Soft, Nontender, Nondistended and Normal Bowel Sounds; Negative Organomegaly
Rectal: Deferred by Provider
Musculoskeletal: No Clubbing, No Cyanosis and No Edema
Skin: Negative Rash
Neuro: Nonfocal/Grossly Intact
--- NOTE | 2024-10-02 13:15 | CM ---
Patient seen at bedside
Left heart cath today
PLAN: Home, no needs anticipated
son to transport
--- NOTE | 2024-10-02 16:57 | ITS.CL.CATH ---
Licensing Representative - Catheterization
Cardiac Catheterization
Procedure Report:
LEFT HEART CATHETERIZATION
Date of Procedure: October 02, 2024
Referring: Dr. Curry Royal
PROCEDURES:
1. Left heart catheterization with coronary and single-plane left ventriculography
INDICATION: Palpitations and generalized sense of feeling unwell with recurring ED evaluations for vague cardiovascular symptoms and negative workup to date
ACCESS: Right radial artery, 6 Frisian sheath
Note: Patient experienced a profound vasovagal episode after arterial access with systolic blood pressures falling into the 60s. He responded to IV fluids but became very diaphoretic and presyncopal
HEMODYNAMICS : (mmHg)
AO (s/d) : 114/75, 82
LV (s/d) : 120/12
LVEDP : 22 (this was following 600-700 ml saline bolus after vasovagal episode)
CORONARY FINDINGS
DOMINANCE: Left
LEFT MAIN: Normal
LEFT ANTERIOR DESCENDING: The LAD arises normally from the left main and runs in the anterior interventricular groove. The LAD has only minor irregularities over its course. The distal vessel wraps around the apex. 2 large diagonal branches arise
from the mid LAD and in minor irregularities
CIRCUMFLEX: The circumflex is a large-caliber dominant vessel that has only minor irregularities over its course. Several medium to large caliber obtuse marginal branches arise from the mid circumflex. The AV continuation of the circumflex
supplies a large PDA and moderate caliber posterolateral branch both of which are widely patent
RIGHT CORONARY ARTERY: Small nondominant
VENTRICULOGRAPHY: Left ventriculography is performed in an PALACIOS projection. The digital single-plane left ventricular ejection fraction is estimated at 60%
SEDATION: 45 minutes of procedural sedation was utilized. An independent bilingual medical receptionist was present to assist with and help manage the patient's level of consciousness and physiologic status.
RADIATION SUMMARY: Fluoro Time (min): 6.3, Dose (mGy): 513, DAP (Gy.cm2) : 29.3
Closure Device: TR band
CONCLUSIONS
1. Nonobstructive coronary disease
2. Preserved LV systolic function
Copy to: Dr. Christiano Awad
--- NOTE | 2024-10-02 17:21 | PTCARENOTE ---
patient with R band on, scheduled to removed 3ml of air @ 1715. Upon removal of air right radial site began to bleed. Air reinserted and ROSI Johnson notified. will continue to do post angio checks as ordered, and will attempt to remove air in 30
min at 1745
[2024-10-02 17:57] LABS: ANA, IgG Reflex to HEp-2 None Detected (None Detected)
[2024-10-02] MEDS: PROTONIX 40 MG PO (21:23)
[2024-10-02] MEDS: NON-FORMULARY ITEM 1 UNIT NASAL (21:37)
[2024-10-03 03:31] VITALS: BP 100/59
[2024-10-03] MEDS: PROTONIX 40 MG PO (07:34)
[2024-10-03] MEDS: ASPIR LOW (ENTERIC COATED) 81 MG PO (07:34)
[2024-10-03] MEDS: ZYRTEC 10 MG PO (07:35)
[2024-10-03] MEDS: CRESTOR 5 MG PO (07:35)
[2024-10-03] MEDS: VIBRAMYCIN 100 MG PO (07:35)
[2024-10-03] MEDS: HEPARIN 5000 UNITS SC (07:35)
[2024-10-03] MEDS: NORVASC 2.5 MG PO (07:35)
[2024-10-03] MEDS: DELTASONE 20 MG PO (07:39)
[2024-10-03 07:51] LABS: Blood Urea Nitrogen 16 mg/dl (9-20); Calcium 9.6 mg/dl (8.4-10.2); Carbon Dioxide 26 mmol/L (22-30); Chloride 108 mmol/L (98-107); Estimated Creatinine Clearance 118 ml/min; Glucose 88 mg/dl (70-99); Potassium 4.3 mmol/L (3.5-5.1); Sodium 141 mmol/L (135-145); eGFR > 60.00
[2024-10-03 07:56] LABS: Hematocrit 41.1 % (39.0-52.0); Hemoglobin 14.1 g/dL (13.0-18.0); Mean Corp Hgb Conc. 34.3 g/dL (33.0-37.0); Mean Corpuscular Volume 84.7 fL (80.0-94.0); Platelet Count 224 10^3/uL (130-400); Red Cell Dist. Width 12.8 % (11.5-14.5)
[2024-10-03 08:09] VITALS: BP 138/85
[2024-10-03] MEDS: ADVAIR HFA 115/21 MCG INHALER 2 PUFF INH (08:13)
[2024-10-03 11:13] VITALS: BP 135/80
--- NOTE | 2024-10-03 12:32 | W.PN.HOSP.TC ---
Addendum entered and electronically signed by Alfonzo Childress MD 10/03/24 15:58:
[id number]
Original Note:
Today's Communication/Plan
-
Aspirin
Amlodipine increased
Prednisone taper
Follow-up Lyme outpatient
Continue doxycycline as per PCP
Continue steroid taper
If continued palpitations after treatment of eosinophilic esophagitis, may consider EP study outpatient
Follow-up cardiology, PCP, GI/immunology outpatient
Assessment / Plan
Assessment / Plan
Assessment/plan
#Acute on chronic palpitations
-Etiology UNK, possible related to eosinophilic esophagitis; less likely Lyme carditis
-Trops negative x 2
-EKG- Normal sinus rhythm minimal voltage criteria for LVH
-Cardiology input appreciated
-Started on aspirin this admission
� Left heart cath with nonobstructive coronary disease
- Lyme screen pending, may need to be followed up outpatient. Already on doxycycline with outpatient PCP
� RUSH IgG negative
-Continue statin
� Follow-up cardiology outpatient
#Possible Lyme's disease
� Had found a tick on leg on 10/02; removed appropriately by nurse
-Lyme testing pending
-Continue [employer] doxycycline for now
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
#Recently diagnosed eosinophilic esophagitis
�Follow-up for possible Dupixent outpatient
#Essential hypertension
-Continue amlodipine, dosage increased to twice daily this admission
#GERD
-Continue Protonix
#Asthma
-Continue Advair
#Obesity secondary to excess calories
-Affects all aspects of care, encouraged weight loss
CODE STATUS full code
DVT prophylaxis heparin subcu
More than 30 minutes spent in discharge including
Final examination of the patient
Summarizing hospital stay
Instructions for continuing care to all relevant caregivers
Preparation of discharge records, prescriptions, and referral forms
Total time spent (in minutes): 37
Anticipated Discharge: Today
Subjective/Interval History
-
Date of Service: October 03, 2024
Left heart cath with nonobstructive coronary artery disease
Objective Data
-
Labs:
Laboratory Results
10/03/24
06:38
WBC 8.1
Hgb 14.1
Hct 41.1
Plt Count 224
Sodium 141
Potassium 4.3
Chloride 108 H
Carbon Dioxide 26
BUN 16
Creatinine 1.0
Glucose 88
Calcium 9.6
Vital Signs:
Vital Signs
Temp Pulse Resp BP Pulse Ox
98.3 F 75 14 135/80 97
10/03/24 11:13 10/03/24 11:13 10/03/24 11:13 10/03/24 11:13 10/03/24 11:13
I&O
10/02/24 10/03/24 10/04/24
06:59 06:59 06:59
Intake Total 1999 1280 / 1280
Balance 1999 1280 / 1280
Review of Systems
-
History Source: Patient
All other systems: Not reviewed unless documented
Physical Exam
-
General: Well Developed and No Apparent Distress
HEENT: Normocephalic, Atraumatic and Moist Mucous Membranes
Respiratory: Clear to Auscultation
Cardiac: Regular Rhythm and S1/S2; Negative Murmur, Rub or Gallop
GI: Soft, Nontender, Nondistended and Normal Bowel Sounds; Negative Organomegaly
Rectal: Deferred by Provider
Musculoskeletal: No Clubbing, No Cyanosis and No Edema
Skin: Negative Rash
Neuro: Nonfocal/Grossly Intact
Data Reviewed
-
Diagnostic Radiology: Report Reviewed by me
Medical Tests (Nuc Med, Echo etc): Report Reviewed by me
Labs: Labs Reviewed by me
--- NOTE | 2024-10-03 12:36 | W.DS.TRANS ---
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
-
Discharge Instructions:
Discharge Diagnosis/Procedures Palpitations
cardiac catheterization
Diet Low Cholesterol,Low Fat
Blood Work CBC and BMP within 1 week with PCP
Instructions:
Stand-Alone Forms: DC Instructions- Cath/EP Lab
Changes to Home Medications: Yes
Discharge Medications:
DC Medications w/original date entered in [employer]
doxycycline hyclate 100 mg tablet 100 mg PO DAILY Infection 09/30/24
fluticasone 250 mcg-salmeterol 50 mcg/dose blistr powdr for inhalation (Advair Diskus) 1 inh inhalation DAILY Lung/Breathing Issues 09/30/24
levocetirizine 5 mg tablet (Xyzal) 5 mg PO DAILY Allergies 09/30/24
pantoprazole 40 mg tablet,delayed release 40 mg PO BID Gastrointestinal Issue 09/30/24
prednisone 10 mg tablets in a dose pack 10 mg PO DIRECTED Autoimmune Disorder 09/30/24
rosuvastatin 5 mg tablet 5 mg PO DAILY High Cholesterol 09/30/24
Flonase 1 spray HS 10/01/24
amlodipine 2.5 mg tablet 2.5 mg PO BID 30 days #60 tabs 10/02/24
aspirin 81 mg tablet,delayed release 81 mg PO DAILY 30 days #30 tabs 10/02/24
Home Medication Changes
amlodipine 2.5 mg tablet 2.5 mg PO BID 30 days #60 tabs 10/02/24
aspirin 81 mg tablet,delayed release 81 mg PO DAILY 30 days #30 tabs 10/02/24
Pending Results: No
--- NOTE | 2024-10-03 13:29 | CM ---
Reviewed chart notes. CM continues to be available to patient/family and is monitoring medical plan for needs at discharge.
Plan: Discharge to home today. No needs.
[2024-10-03 13:53] LABS: Lyme Antibody Screen, EIA Negative (Negative)
== END 2024-10-03 13:50 | disposition home or self-care (01) ==
LOC: 3 WEST ACU 18:37
PROVIDERS: Emergency Medicine; Student in an Organized Health Care Education/Training Program; ADMITTING PHYSICIAN Hospitalist; ATTENDING PHYSICIAN Internal Medicine; CONSULT PHYSICIAN Internal Medicine Cardiovascular Disease; EMERGENCY PHYSICIAN Emergency Medicine; FAMILY PHYSICIAN Family Medicine
DX: R00.2 Palpitations (principal); I25.10 Atherosclerotic heart disease of native coronary artery without angina pectoris; K20.0 Eosinophilic esophagitis; I10 Essential (primary) hypertension; K21.9 Gastro-esophageal reflux disease without esophagitis; J45.909 Unspecified asthma, uncomplicated; E78.00 Pure hypercholesterolemia, unspecified; E66.09 Other obesity due to excess calories; Z68.33 Body mass index [BMI] 33.0-33.9, adult; Z79.899 Other long term (current) drug therapy
CPT/HCPCS: 71046; 80048; 80053; 80061; 83735; 83880; 84443; 84484; 85025; 85027; 85379; 85610; 85730; 86038; 86618; 93005; 93458; 94640; 99152; 99153; 99285; C1894; G0378; Q9967

== ENCOUNTER 2024-10-06 05:59 | Emergency (ER) | payer OTHER, SELFPAY ==
[2024-10-06 06:05] VITALS: BP 162/100
[2024-10-06 06:59] VITALS: BP 131/86
--- NOTE | 2024-10-06 07:45 | ED.GENMED ---
History of Present Illness
<Benson Loya MD, Resident - Last Filed: 10/06/24 09:29>
General
Chief Complaint: Skin Problem
Source: patient
Time Seen by Provider: 10/06/24 07:14
Travel History
Have you traveled to any high risk areas for coronavirus over the past 14 days?: No
History of Present Illness
History of Present Illness:
Quentin is a 55-year-old male with history of essential hypertension, GERD, asthma, eosinophilic esophagitis, and recent right heart catheterization (10/03) via right radial artery ISO possible Lyme disease versus myocarditis who presents with a 'bump'
and area of tenderness in the right upper arm. He states that last night, he felt a little 'twinge' in his right wrist over the right heart catheterization access site and this morning woke up with his right chest laying on his head. He noticed an
area of tenderness and a little bump on palpation in the right medial upper arm. He reports that his medical screener warned him about possible clots and so he decided to come to the ED for further evaluation. Of note, he is still taking doxycycline
and prednisone since his discharge on 10/03 ISO unknown etiology of his heart palpitations, possibly related to myocarditis or eosinophilic esophagitis. He is still getting worked up for these. Quentin also notes that in his recent hospitalization,
he was started on aspirin 81 mg, which he has taken briefly before and stopped per advice of his doctor as it was potentially causing spontaneous bruising. He denies SOB, palpitations, chest pain, N/V, fever/chills, recent infections, trauma to the
area, or insect bites.
Past History
<Benson Loya MD, Resident - Last Filed: 10/06/24 09:29>
Past History
ED Past Medical History: Asthma, GERD, Other (Palpitations, Fatty liver, Hep A) and Other (Eosinophilic esophagitis)
ED Past Surgical History: Orthopedic (Left knee surgery, ) and Urological (Vasectomy)
Social History
Tobacco: Non-smoker
Alcohol: None
Drug: None
Personal:
Living: with family
Employment: Employed
Family History
Family History: Other
Phy Exam
<Benson Loya MD, Resident - Last Filed: 10/06/24 09:29>
General Physical Exam
General Presentation: well appearing and no apparent distress
General age: appears stated age
General Skin: warm and dry
General Habitus: normal
General Mental: alert
Cardiovascular Exam
Cardiovascular Exam: regular rate/rhythm, no edema and no gallop
Gastrointestinal Exam
Gastrointestinal Exam: non tender and soft
Musculoskeletal Exam
Musculoskeletal Exam: full ROM, no edema and other (Medial right upper arm with slight tenderness to palpation and a small area of erythema)
Skin Exam
Skin Exam: normal color, warm/dry and other (Small area of erythema and tenderness on right medial upper arm)
Course
<Benson Loya MD, Resident - Last Filed: 10/06/24 09:29>
Orders/Labs/Results
Orders:
Orders
10/06/24 08:04
US Periph Venous UPPER Ext RT Urgent
Comment:
Reason For Exam: right wrist swelling s/p cardiac cath
10/06/24 08:09
US Periph Arterial UPPER Ext Urgent
Comment:
Reason For Exam: right wrist swelling s/p right heart cath
Vital Signs
Initial and Last Documented VS:
Initial Vital Signs
Temp Pulse Resp BP Pulse Ox
97.7 F 77 18 162/100 99
10/06/24 06:05 10/06/24 06:05 10/06/24 06:05 10/06/24 06:05 10/06/24 06:05
Last Documented Vital Signs
Temp Pulse Resp BP Pulse Ox
98.7 F 86 16 137/71 99
10/06/24 09:34 10/06/24 09:34 10/06/24 09:34 10/06/24 09:34 10/06/24 09:34
<Kevon Brown, DO - Last Filed: 10/06/24 13:52>
Orders/Labs/Results
Orders:
Orders
10/06/24 08:04
US Perip Venous UPPER Ext RT Urgent
Comment:
Reason For Exam: right wrist swelling s/p cardiac cath
10/06/24 08:09
US Perip Arterial UPPER Ext Urgent
Comment:
Reason For Exam: right wrist swelling s/p right heart cath
Vital Signs
Initial and Last Documented VS:
Initial Vital Signs
Temp Pulse Resp BP Pulse Ox
97.7 F 77 18 162/100 99
10/06/24 06:05 10/06/24 06:05 10/06/24 06:05 10/06/24 06:05 10/06/24 06:05
Last Documented Vital Signs
Temp Pulse Resp BP Pulse Ox
98.7 F 86 16 137/71 99
10/06/24 09:34 10/06/24 09:34 10/06/24 09:34 10/06/24 09:34 10/06/24 09:34
<Benson Loya MD, Resident - Last Filed: 10/06/24 09:29>
MDM/Problems Addressed
Differential Diagnosis Includes:
Superficial thrombophlebitis
DVT
Radial artery occlusion
Hematoma/contusion secondary to recent heart cath
Arterial pseudoaneurysm
Insect bite
MDM/Problems Addressed:
Quentin is a 55-year-old male with history of essential hypertension, GERD, asthma, eosinophilic esophagitis, and recent right heart catheterization (10/03) via right radial artery ISO possible Lyme disease versus myocarditis who presents with a 'bump'
and area of tenderness in the right upper arm.
#Right upper arm tenderness and 'bump'
Likely superficial thrombophlebitis but given recent right heart catheterization on 10/03, cannot rule out arterial pseudoaneurysm or DVT without further imaging.
- Peripheral vascular venous ultrasound:
1. No evidence of right upper extremity DVT.
2. Superficial venous thrombosis within the right basilic vein and median cubital vein.
- Peripheral vascular arterial ultrasound:
No evidence of pseudoaneurysm or significant hematoma adjacent to the right radial artery.
Discussed the above with the patient and he was deemed medically stable for discharge to home.
<Benson Loya MD, Resident - Last Filed: 10/06/24 09:29>
*Pulse Oximetry
SaO2: 99
Oxygen Mode of Delivery: Room air
Patient hypoxic: no
*Critical Care Note
Total Time (30-74mins, 75-104mins- exclusive of procedures): Not Applicable
ED Attending Note
<Benson Loya MD, Resident - Last Filed: 10/06/24 09:29>
-
Portions of this chart may have been created with voice recognition software.� Occasional wrong word or��sound alike� substitutions may have occurred due to the inherent limitations of voice recognition software.
<Kevon Brown, DO - Last Filed: 10/06/24 13:52>
ED Attending Note
Patient seen and examined by attending physician: Yes
I performed a history and physical exam of patient and discussed management with resident, I reviewed resident's note and agree with documented findings and plan of care.: Yes
ED Attending Note:
I have reviewed and agree with history and treatment plan by Benson Loya MD. My exam revealed a 54-year-old male with minimal swelling right upper arm. Exam initially suspicious for thrombophlebitis, confirmed by arterial and peripheral vascular
ultrasound studies. No signs of pseudoaneurysm.
Discharge Plan
Departure
Patient Disposition: Home (Routine Discharge)
Date of Disposition: 10/06/24
Time of Disposition: :
Patient with high blood pressure during this ER visit?: No
Condition: Good
Discharge Problem:
Superficial venous thrombosis of right upper extremity
Instructions: RICE Therapy
Prescriptions:
No Action
prednisone 10 mg Tablets,Dose Pack
10 mg PO DIRECTED
pantoprazole 40 mg Tablet,Delayed Release (Dr/Ec)
40 mg PO BID
rosuvastatin 5 mg Tablet
5 mg PO DAILY
levocetirizine [Xyzal] 5 mg Tablet
5 mg PO DAILY
fluticasone propion-salmeterol [Advair Diskus] 250-50 mcg/dose Blister With Device
1 inh INHALATION DAILY
Flonase
1 spray BOTH EYES HS
amlodipine 2.5 mg Tablet
2.5 mg PO BID 30 Days Qty: 60 0RF
aspirin 81 mg Tablet,Delayed Release (Dr/Ec)
81 mg PO DAILY 30 Days Qty: 30 0RF
Referrals:
Leonardo Hollis DO [Family Provider, Family Practice]
Interventions
Interventions:
*Risk Screen - Suicide Last Done: 10/06/24 06:05
*General Assessment Last Done: 10/06/24 06:59
*Neglect/Abuse Screening Last Done: 10/06/24 06:05
*ED- Fall Risk Assessment Last Done: 10/06/24 06:59
*ED COVID-19 Vaccine History Last Done: 10/06/24 06:59
*Nursing Disposition Last Done: 10/06/24 09:34
ED-Skin Assessment Last Done: 10/06/24 06:59
Discharge Date and Time
Discharge Date/Time: 10/06/24 09:37
Print Language: BERMUDIAN
[2024-10-06 09:34] VITALS: BP 137/71
== END 2024-10-06 09:37 | disposition home or self-care (01) ==
LOC: EMR 05:59
PROVIDERS: EMERGENCY PHYSICIAN Emergency Medicine; FAMILY PHYSICIAN Family Medicine
DX: I82.611 Acute embolism and thrombosis of superficial veins of right upper extremity (principal); I10 Essential (primary) hypertension; K21.9 Gastro-esophageal reflux disease without esophagitis; J45.909 Unspecified asthma, uncomplicated
CPT/HCPCS: 99284; 93930; 93971

== ENCOUNTER 2024-10-22 22:51 | Emergency (ER) | payer OTHER, SELFPAY ==
[2024-10-22 22:56] VITALS: BP 164/108
--- NOTE | 2024-10-22 23:22 | ED.GENMED ---
History of Present Illness
General
Chief Complaint: Musculo-Skeletal Complaint
Time Seen by Provider: 10/22/24 23:18
History of Present Illness
History of Present Illness:
54-year-old male with history of hypertension and hyperlipidemia presents to the emergency department for evaluation of left calf and left knee pain beginning this morning. He is concerned for DVT given recent hospitalization as well as recent
issues with superficial thrombophlebitis that began after undergoing a left heart catheterization via the right radial approach. No fevers, chills, sweats, shortness of breath or chest pain. He is not on anticoagulants.
Past History
Past History
ED Past Medical History: Asthma, GERD, Other (Palpitations, Fatty liver, Hep A) and Other (Eosinophilic esophagitis)
ED Past Surgical History: Orthopedic (Left knee surgery, ) and Urological (Vasectomy)
Social History
Tobacco: Non-smoker
Alcohol: None
Drug: None
Personal:
Living: with family
Employment: Employed
Family History
Family History: Other
Review of Systems
Review of Systems
Allergies reviewed?: Yes
All Other Systems: ROS reviewed and negative except as documented in HPI and ROS
Phy Exam
Physical Exam
Physical Exam:
GEN: Well appearing, NAD, WDWN
HEENT: Oral mucosa moist, no scleral icterus
Cardiac: Regular rate
Lung: No respiratory distress, no tachypnea
MSK: No gross deformity or injuries, no calf swelling, no palpable venous cords, left knee range of motion normal
Skin: Good color, no pallor or jaundice, no rashes
Neuro: AO x3, moves all extremities freely
Psych: Calm, cooperative
Course
Orders/Labs/Results
Orders:
Orders
10/22/24 23:22
Venous Doppler Lwr Ext Left [US Periph Venous LOWER Ext LT] Urgent
Comment:
Reason For Exam: L calf pain
Vital Signs
Initial and Last Documented VS:
Initial Vital Signs
Temp Pulse Resp BP Pulse Ox
98.1 F 86 22 164/108 100
10/22/24 22:56 10/22/24 22:56 10/22/24 22:56 10/22/24 22:56 10/22/24 22:56
Last Documented Vital Signs
Temp Pulse Resp BP Pulse Ox
98.1 F 86 22 164/108 100
10/22/24 22:56 10/22/24 22:56 10/22/24 22:56 10/22/24 22:56 10/22/24 23:24
MDM/Problems Addressed
MDM/Problems Addressed:
54-year-old male presents with left calf pain. No edema or palpable abnormalities are noted. Ultrasound shows no evidence for DVT. Likely muscular etiology, discharged in stable condition
*Pulse Oximetry
SaO2: 100
Oxygen Mode of Delivery: Room air
Patient hypoxic: no
*Critical Care Note
Total Time (30-74mins, 75-104mins- exclusive of procedures): Not Applicable
ED Attending Note
-
Portions of this chart may have been created with voice recognition software.� Occasional wrong word or��sound alike� substitutions may have occurred due to the inherent limitations of voice recognition software.
Discharge Plan
Departure
Patient Disposition: Home (Routine Discharge)
Date of Disposition: 10/22/24
Time of Disposition: 23:59
Patient with high blood pressure during this ER visit?: Yes
Discharge Problem:
Pain of left calf
Instructions: Adkins Splints (DC)
Prescriptions:
No Action
pantoprazole 40 mg Tablet,Delayed Release (Dr/Ec)
40 mg PO BID
rosuvastatin 5 mg Tablet
5 mg PO DAILY
levocetirizine [Xyzal] 5 mg Tablet
5 mg PO DAILY
fluticasone propion-salmeterol [Advair Diskus] 250-50 mcg/dose Blister With Device
1 inh INHALATION DAILY
Flonase
1 spray BOTH EYES HS
aspirin 81 mg Tablet,Delayed Release (Dr/Ec)
81 mg PO DAILY 30 Days Qty: 30 0RF
amlodipine 5 mg Tablet
5 mg PO HS
amlodipine 2.5 mg tablet
2.5 mg PO DAILY
Referrals:
Leonardo Hollis DO [Family Provider, Family Practice]
Interventions
Interventions:
*Risk Screen - Suicide Last Done: 10/22/24 22:56
*General Assessment Last Done: 10/22/24 23:23
*Neglect/Abuse Screening Last Done: 10/22/24 22:56
*ED- Fall Risk Assessment Last Done: 10/22/24 23:23
*ED COVID-19 Vaccine History Last Done: 10/22/24 23:23
Discharge Date and Time
Print Language: KHMER
[2024-10-22 23:23] VITALS: BMI 34.8
== END 2024-10-23 | disposition home or self-care (01) ==
LOC: EMR 22:51
PROVIDERS: EMERGENCY PHYSICIAN Emergency Medicine; FAMILY PHYSICIAN Family Medicine
DX: M79.662 Pain in left lower leg (principal); I10 Essential (primary) hypertension; E78.5 Hyperlipidemia, unspecified; J45.909 Unspecified asthma, uncomplicated; K21.9 Gastro-esophageal reflux disease without esophagitis; K76.0 Fatty (change of) liver, not elsewhere classified; Z79.82 Long term (current) use of aspirin; Z86.72 Personal history of thrombophlebitis
CPT/HCPCS: 99284; 93971

== ENCOUNTER 2024-11-19 03:57 | Emergency (ER) | payer OTHER, SELFPAY ==
[2024-11-19 04:03] VITALS: BP 151/97
--- NOTE | 2024-11-19 08:55 | ED.GENMED ---
History of Present Illness
General
Chief Complaint: Numbness
Source: patient
Exam Limitations: none
Time Seen by Provider: 11/19/24 08:33
History of Present Illness
History of Present Illness:
54-year-old male presents complaining of the onset of numbness to the right upper extremity he experienced when he woke up this morning. He felt as though it was from the right elbow down. He has noticed over the past couple days that his
dexterity has not been as fine in the right arm. He has been trying to shake his hand out to get his arm to work better. He denies headache chest pain or shortness of breath. Other history patient provided was his recent potential diagnosis of
Lyme in the last 2 months. Asked to been on doxycycline and he is on his second month of treatment. He was here in October had a heart cath done and subsequently he developed superficial thrombophlebitis in his arm. He is on an aspirin. He
feels as though he is developing more clots in the arms. He is concerned with the Lyme diagnosis that there may be an associated parasite illness.
Past History
Past History
ED Past Medical History: Asthma, GERD, Other (Palpitations, Fatty liver, Hep A) and Other (Eosinophilic esophagitis)
ED Past Surgical History: Orthopedic (Left knee surgery, ) and Urological (Vasectomy)
Social History
Tobacco: Non-smoker
Alcohol: None
Drug: None
Personal:
Living: with family
Employment: Employed
Family History
Family History: Other
Phy Exam
Physical Exam
Physical Exam:
General: Well-appearing male no acute respiratory distress
HEENT: Normal cephalic atraumatic
Heart: Regular rate and rhythm
Lungs: Clear no wheeze
Skin: No rash or lesions
Vascular 2+ radial pulse bilateral wrist
Neurologic: Good sensation and function to the right hand no facial asymmetry dysarthria or aphasia
Course
Orders/Labs/Results
Orders:
Orders
11/19/24 08:49
CT Head W/o Iv Contrast Urgent
Comment:
Reason For Exam: numbness
Venous Doppler Upr Ext Left [US Periph Venous UPPER Ext LT] Urgent
Comment:
Reason For Exam: pain
Venous Doppler Upr Ext Right [US Periph Venous UPPER Ext RT] Urgent
Comment:
Reason For Exam: pain
11/19/24 10:03
Complete Blood Count/With Diff Urgent
Comprehensive Metabolic Panel Urgent
Ehrlichia/Anaplasma by PCR [S] Urgent
Lyme Progressive Urgent
PTT Urgent
Prothrombin Time Urgent
[facility] Spotted Fever IgG&IgM [S] Urgent
Blood Parasites Urgent
RYAN Source: Blood/Venous
Specimen Description:
11/19/24 16:02
CT Chest PE Study Urgent
Comment:
Reason For Exam: sob
11/19/24 16:03
Apixaban [Eliquis] 10 mg PO NOW STA
Abnormal Lab Results
11/19/24
10:03
MPV 11.6 H fL
(7.4-10.4)
PT 14.9 H Sec
(11.4-14.6)
Glucose 101 H mg/dl
(70-99)
ALT 57 H U/L
(0-50)
11/19/24 10:03
11/19/24 10:03
Vital Signs
Initial and Last Documented VS:
Initial Vital Signs
Temp Pulse Resp BP Pulse Ox
97.9 F 75 20 151/97 99
11/19/24 04:03 11/19/24 04:03 11/19/24 04:03 11/19/24 04:03 11/19/24 04:03
Last Documented Vital Signs
Temp Pulse Resp BP Pulse Ox
97.7 F 66 18 146/94 98
11/19/24 16:30 11/19/24 16:30 11/19/24 16:30 11/19/24 16:30 11/19/24 16:30
MDM/Problems Addressed
Differential Diagnosis Includes:
Patient here with multiple complaints primarily with right arm numbness onset today with history of superficial phlebitis. He also has a diagnosis of Lyme that was diagnosed based off clinical symptoms. Will check labs including bloods parasite
smear CT head ultrasound of the arms and coags. Etiology of patient's symptoms somewhat unclear I do not suspect CVA
*Pulse Oximetry
SaO2: 99
Oxygen Mode of Delivery: Room air
Patient hypoxic: no
*Critical Care Note
Total Time (30-74mins, 75-104mins- exclusive of procedures): Not Applicable
Update Note
Update Note:
Blood parasite negative. Patient has been here extremely long time waiting for ultrasound. Venous ultrasound does demonstrate thrombus in the left basilic vein. Given recurrence of superficial thrombus between the right and the left we will start
on Eliquis. Patient was due for CT scan of his chest tomorrow but he does complain of shortness of breath. Given the clots in his arm we will check a CT scan of his chest today.
CT negative for PE. Patient discharged.
ED Attending Note
-
Portions of this chart may have been created with voice recognition software.� Occasional wrong word or��sound alike� substitutions may have occurred due to the inherent limitations of voice recognition software.
Discharge Plan
Departure
Patient Disposition: Home (Routine Discharge)
Date of Disposition: 11/19/24
Time of Disposition: 18:24
Patient with high blood pressure during this ER visit?: No
Condition: Good
Covid-19: Not Applicable
Discharge Problem:
superficial thrombus
Instructions: Deep vein thrombosis (blood clot in the arm)
Prescriptions:
New
Eliquis 5 mg tablet
5 mg PO BID Qty: 60 0RF
Rx Instructions:
Take 10mg twice a day for the first week. Then take 5mg twice a day.
No Action
pantoprazole 40 mg Tablet,Delayed Release (Dr/Ec)
40 mg PO BID
rosuvastatin 5 mg Tablet
5 mg PO DAILY
levocetirizine [Xyzal] 5 mg Tablet
5 mg PO DAILY
fluticasone propion-salmeterol [Advair Diskus] 250-50 mcg/dose Blister With Device
1 inh INHALATION DAILY
Flonase
1 spray BOTH EYES HS
aspirin 81 mg Tablet,Delayed Release (Dr/Ec)
81 mg PO DAILY 30 Days Qty: 30 0RF
amlodipine 5 mg Tablet
5 mg PO HS
amlodipine 2.5 mg tablet
2.5 mg PO DAILY
Referrals:
Leonardo Hollis DO [Family Provider, Family Practice]
Stand Alone Forms: Return to Work
Interventions
Interventions:
*Risk Screen - Suicide Last Done: 11/19/24 04:08
*General Assessment Last Done: 11/19/24 04:03
*Neglect/Abuse Screening Last Done: 11/19/24 04:03
*ED- Fall Risk Assessment Last Done: 11/19/24 04:03
*ED COVID-19 Vaccine History Last Done: 11/19/24 04:03
*ED Influenza Vaccine History Last Done: 11/19/24 04:03
*Nursing Disposition Last Done: 11/19/24 19:59
ED- Neurological Assessment Last Done: 11/19/24 10:00
Discharge Date and Time
Discharge Date/Time: 11/19/24 19:59
Print Language: [place] CITIZEN
[2024-11-19 09:31] VITALS: BP 147/95
[2024-11-19 10:22] LABS: Hematocrit 42.5 % (39.0-52.0); Hemoglobin 14.8 g/dL (13.0-18.0); Mean Corp Hgb Conc. 34.8 g/dL (33.0-37.0); Mean Corpuscular Volume 83.2 fL (80.0-94.0); Nucleated Red Blood Cells % 0 % (-); Platelet Count 182 10^3/uL (130-400); Red Cell Dist. Width 12.7 % (11.5-14.5)
[2024-11-19 10:31] LABS: INR 1.14; PT 14.9 Sec (11.4-14.6)
[2024-11-19 10:32] LABS: APTT 29.2 Sec (23.4-35.0)
[2024-11-19 10:44] LABS: ALT (SGPT) 57 U/L (0-50); AST (SGOT) 34 U/L (17-59); Albumin 4.6 g/dl (3.5-5.0); Alkaline Phosphatase 52 U/L (38-126); Blood Urea Nitrogen 14 mg/dl (9-20); Calcium 9.6 mg/dl (8.4-10.2); Carbon Dioxide 28 mmol/L (22-30); Chloride 107 mmol/L (98-107); Glucose 101 mg/dl (70-99); Potassium 4.4 mmol/L (3.5-5.1); Sodium 142 mmol/L (135-145); Total Protein 7.8 g/dl (6.3-8.2); eGFR > 60.00
[2024-11-19 14:19] VITALS: BP 145/86
[2024-11-19 16:30] VITALS: BP 146/94
[2024-11-19] MEDS: ELIQUIS 10 MG PO (16:36)
[2024-11-20 14:50] LABS: Lyme Antibody Screen, EIA Negative (Negative)
== END 2024-11-19 19:59 | disposition home or self-care (01) ==
LOC: EMR 03:57
PROVIDERS: Physician Assistant; EMERGENCY PHYSICIAN Student in an Organized Health Care Education/Training Program; FAMILY PHYSICIAN Family Medicine
DX: I82.612 Acute embolism and thrombosis of superficial veins of left upper extremity (principal); J45.909 Unspecified asthma, uncomplicated; M79.601 Pain in right arm; R06.02 Shortness of breath; Z79.82 Long term (current) use of aspirin; Z86.72 Personal history of thrombophlebitis
CPT/HCPCS: 99284; 70450; 71275; 80053; 85025; 85610; 85730; 86618; 86757; 87015; 87207; 87468; 87484; 87798; 93971; Q9967